=== PATIENT | female | born 1965 | race Caucasian/White ===

== ENCOUNTER → 2018-02-13 | Outpatient (CLI) | payer OTHER ==
[~2018-02-13] MED LIST: DPKSR250 PO; TRAM-10 PO
[2018-02-13 10:51] LABS: BASO % 0.2 %; BASO ABS # 0.01 K/uL (0-0.2); EOS % 1.6 %; EOS ABS # 0.07 K/uL (0-0.5); HEMATOCRIT 39.6 % (37-47); HEMOGLOBIN 13.3 g/dL (12.0-16.0); LYMPH % 44.9 %; LYMPH ABS # 1.92 K/uL (1.2-3.4); MEAN CORPUSCULAR HEMOGLOBIN 30.2 pg (25-34); MEAN CORPUSCULAR HGB CONC 33.6 g/dl (32-36); MEAN PLATELET VOLUME 10.5 fL (7.4-10.4); MONO % 8.9 %; MONO ABS # 0.38 K/uL (0.11-0.59); NEUT % 44.4 %; PLATELET COUNT 185 K/uL (130-400); RED CELL DISTRIBUTION WIDTH CV 13.6 % (11.5-14.5); RED CELL DISTRIBUTION WIDTH SD 44.8 fL (36.4-46.3); WHITE BLOOD COUNT 4.28 K/uL (4.8-10.8)
[2018-02-13 11:18] LABS: ALBUMIN 3.8 gm/dl (3.4-5.0); ALKALINE PHOSPHATASE 75 U/L (45-117); ALT/SGPT 25 U/L (12-78); AST/SGOT 16 U/L (15-37); TOTAL PROTEIN 7.8 gm/dl (6.4-8.2)
== END | disposition home or self-care (01) ==
LOC: C.LAB1850 09:55
PROVIDERS: ATTEND Psychiatry & Neurology Psychiatry
DX: Z51.81 Encounter for therapeutic drug level monitoring (principal); Z79.3 Long term (current) use of hormonal contraceptives; Z79.899 Other long term (current) drug therapy

== ENCOUNTER → 2018-06-09 | Outpatient (CLI) | payer OTHER ==
[~2018-06-09] MED LIST changes: +DPKSR/250 PO; -DPKSR250 PO; +EYED OP; -TRAM-10 PO
--- NOTE | 2018-06-10 08:11 | MAMMOGRAPHY REPORT ---
ULTRASOUND OF BOTH BREASTS: 06/09/2018 CLINICAL HISTORY: 53-year-old woman called back from baseline screening mammogram for bilateral breas t masses. Patient's mother was tested for the breast cancer gene which was reportedly negative. No fi rst-degree relatives with breast cancer. COMPARISON: Comparison is made to exam dated: 05/28/2018 mammogram - [facility]. FINDINGS: Targeted ultrasound was performed in the upper outer posterior right breast to assess for t he 14 mm circumscribed mammographic mass, and also in the approximate 12:00 anterior left breast to a ssess for a second lobulated and circumscribed subcentimeter mass. In the 11:00 right breast, 5 cm f rom the nipple, there is an oval parallel circumscribed hypoechoic solid-appearing mass measuring 0.8 x 0.6 x 1.1 cm. 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 In the 12:00 left breast, 1 cm from the nipple, there is a lobulated parallel hypoecho ic solid mass measuring 1.1 x 0.4 x 0.5 cm. This most likely represents another fibroadenoma. A thi rd mass is seen in the 12:30 left breast, 2 cm from the nipple that is oval, parallel, circumscribed and anechoic with evidence of posterior acoustic enhancement, measuring 0.9 x 0.5 x 0.8 cm, compatibl e with a benign simple cyst. IMPRESSION: ACR-BI-RADS CATEGORY 3: PROBABLY BENIGN 1. The bilateral breast masses most likely correspond with benign-appearing solid masses seen on ult rasound in the right breast at 11:00 and left breast at 12:00. We discussed options of serial follow -up imaging to ensure stability for a total of 2 years versus tissue sampling with core needle biopsy . The patient is considering her options but will likely undergo bilateral ultrasound-guided core bi opsies. 2. Incidentally noted benign simple cyst in the 12:30 left breast seen on ultrasound. These results and recommendations were discussed with the patient at the time of the exam. She will call in to schedule a follow-up appointment. Jammie Kim M.D. ay/:06/09/2018 15:17:40 Attending Technologist: MARY Lomeli)(M), [facility] Rn Icu: Jammie Kim, [facility] letter sent: Follow Up Recommended 3 BI-RADS Code: ACR-BI-RADS Category 3: Probably Benign
== END | disposition home or self-care (01) ==
LOC: C.MAMM 12:42
PROVIDERS: ATTEND Family Medicine
DX: N63.10 Unspecified lump in the right breast, unspecified quadrant (principal); N63.20 Unspecified lump in the left breast, unspecified quadrant; N60.02 Solitary cyst of left breast

== ENCOUNTER → 2018-07-13 | Outpatient (CLI) | payer OTHER ==
--- NOTE | 2018-07-13 13:40 | Discharge Instructions ---
Discharge Instructions Procedure Procedure Date: Jul 13, 2018. Reason for visit: Bilateral Masses. Discharge Discharge Date: Jul 13, 2018. Discharge Diagnosis: post right and left breast ultrasound guided core biopsies Instructions Activity Recommendations: Additional Limitations (see below) Return to School/Work: no limitations Recommended Home Diet: No Limitations Provider Instructions: ACTIVITY RECOMMENDATIONS: * No lifting, pushing, pulling or exercising the affected side for three days. RETURN TO SCHOOL/WORK: * You may return to work/school after the procedure, but do not perform any strenuous activities for 24 to 48 hours. MEDICATIONS: * Tylenol (two 325 mg) every four to six hours if needed for mild pain (if not allergic to Tylenol). DIET: * Resume previous diet. SPECIAL CARE INSTRUCTIONS: * Keep biopsy site dry for 24 hours. May shower after 24 hours, but do not soak (bathe) incision. May remove Tegaderm (plastic patch) 24 hours after procedure * Leave the steri-strips on for one week. Allow the steri-strips to fall off by themselves. If not off after one week, you may remove them. You may place a Bandaid crosswise over the strips, if desired. * Apply ice 10 minutes on and 10 minutes off as needed. * Wear a bra at bedtime to sleep more comfortably for 2-3 days. * Your referring physician should have the results after approximately 5 to 7 business days. * Call for unusual bleeding, fever, drainage, etc or if you have any questions call [phone] during normal business hours or after hours call Dr Kim, . FOLLOW UP VISIT: Follow-up with Referring Physician as scheduled. Allergies Coded Allergies: Sulfa Drugs (Verified Allergy, Unknown, 04/25/18) Sulfamethoxazole (Verified Allergy, Unknown, 04/25/18) Araceli Love Recommendations: Call your doctor if: * Temperature above 101 degrees * Pain not relieved by pain medicine ordered * There is increased drainage or redness from any incision * You have any unanswered questions or concerns. Your Doctors Instructions noted above were prepared by provider Jammie Kim. Patient Signature Section: Patient Instructions Signature Page Patti Valenzuela Patient (or Guardian) Signature/Date: I have read and understand the instructions given to me by my caregivers. Caregiver/RN/Doctor Signature/Date: The above-named patient and/or guardian has received patient instructions on this date. + Original Patient Signature Page (only) stays with chart. Please make copy for patient.
--- NOTE | 2018-07-13 15:14 | MAMMOGRAPHY REPORT ---
ULTRASOUND GUIDED BIOPSY LEFT BREAST: 07/13/2018 CLINICAL HISTORY: 11 mm solid mass is noted in the right 11:00 and left 12:00 breast, thought to zoe espond with mammographic masses. Patient presents for ultrasound-guided core needle biopsy [facility] IMPRESSION: ULTRASOUND GUIDED BIOPSY Please refer to the report from right breast ultrasound-guided core biopsy performed at the same time for full detail. Jammie Kim M.D. ay/:07/13/2018 13:41:58 Shirt Marker: Adrienne Yan, [facility]
--- NOTE | 2018-07-13 15:14 | MAMMOGRAPHY REPORT ---
BILATERAL DIGITAL DIAGNOSTIC MAMMOGRAM TOMOSYNTHESIS: 07/13/2018 CLINICAL HISTORY: 11 mm solid masses noted in the right 11:00 and left 12:00 breast, thought to corre spond with mammographic masses. Patient presents for ultrasound-guided core needle biopsy in each [facility]. IMPRESSION: POST PROCEDURE IMAGING FOR MARKER PLACEMENT Please refer to the report from right breast ultrasound guided core biopsy performed at the same time for full detail. Some breast cancers are not detected with mammography. A negative mammographic report should not demetrius y biopsy if a clinically suggestive mass is present. Jammie Kim M.D. ay/:07/13/2018 13:42:47 Senior Java Engineer: Adrienne Yan, [facility] BI-RADS Code: Post Procedure Imaging For Marker Placement
--- NOTE | 2018-07-13 15:14 | MAMMOGRAPHY REPORT ---
ULTRASOUND GUIDED BIOPSY RIGHT BREAST: 07/13/2018 CLINICAL HISTORY: 11 mm solid masses noted in the right 11:00 and left 12:00 breast, thought to corre spond with mammographic masses. Patient presents for ultrasound-guided core needle biopsy in each anastacio ast. COMPARISON: Comparison is made to exams dated: 06/09/2018 ultrasound and 05/28/2018 mammogram - [facility]. PATIENT CONSENT: The procedure, risks and benefits were discussed with the patient and informed conse nt was obtained both verbally and in writing. Specific risks to this procedure include: bleeding, in fection, puncture of adjacent structure, nontarget biopsy, sampling error, pain, metal allergy and me dication reaction. PROCEDURE DESCRIPTION: A time out was performed and both right and left breasts were agreed as the si tiera of biopsy. First the right breast biopsy was performed. The oval circumscribed hypoechoic solid mass in the 11: 00 left breast, 5 cm from the nipple was identified. Incidentally noted while evaluating the right b reast prior to biopsy is a second macrolobulated parallel isoechoic solid mass measuring 11.3 x 5.9 x 13.5 mm, and the 11:00 right breast, 3 cm from the nipple. This likely represents an additional fib roadenoma and pending benign pathology results a short interval follow-up targeted right breast ultra sound is recommended to ensure stability of the second non-biopsied mass. The skin of the right breast was prepped and draped in the usual sterile fashion. The solid 11 mm mas s in the 11:00 right breast, 5 cm from the nipple, was chosen as the target for biopsy. Subcutaneous and intraparenchymal 1% buffered lidocaine, with and without epinephrine, was administered as local a nesthesia. A skin incision was made. Through the incision, 3 samples were taken with a 14 gauge Achi iván biopsy device. A ribbon shaped metallic marker was placed at the biopsy site. Hemostasis was achi eved after manual compression. The patient tolerated the procedure well and there was no immediate co mplication. The samples were sent to the pathology department in an appropriately labeled container. Then the biopsy was performed in the left breast for the lobulated 11 mm mass in the 12:00 axis. The skin of the left breast was prepped and draped in the usual sterile fashion. Additional subcutaneou s and intraparenchymal 1% buffered lidocaine, with and without epinephrine was administered as local anesthesia. A skin incision was made. Through the incision, 4 samples were taken with a 14 gauge Ach ieve biopsy device. A ribbon shaped metallic marker was placed at the biopsy site. Hemostasis was ach ieved after manual compression. The patient tolerated the procedure well and there was no immediate c omplication. The samples were sent to the pathology department in an appropriately labeled container . Postprocedure CC and MLO tomosynthesis views of each breast were obtained. There are new ribbon-shap ed biopsy marker clips in the right 11:00 posterior and left 12:00 anterior breast, without evidence of significant postbiopsy hematoma. IMPRESSION: ULTRASOUND GUIDED BIOPSY 1. Status post ultrasound-guided core needle biopsy of solid masses in the 11:00 right breast and 12 :00 left breast, with ribbon-shaped biopsy marker clips placed at each site. 2. The biopsy marker clips aligned with the dominant mammographic masses in question, seen on screen ing mammography. 3. Pending benign pathology results, a follow-up targeted right breast ultrasound is recommended in the right 11:00 axis, 3 cm from the nipple, for an incidentally identified second lobulated solid mas s seen immediately prior to the biopsy which was performed in the 11:00 right breast, 5 cm from the n ipple. This likely represents an additional fibroadenoma. The patient will receive notification of the biopsy results from her referring physician. Jammie Kim M.D. ay/:07/13/2018 13:58:42 Field Sales Executive: Adrienne Yan, [facility]
== END | disposition home or self-care (01) ==
LOC: C.MAMM 12:45
PROVIDERS: ATTEND Family Medicine
DX: N63.10 Unspecified lump in the right breast, unspecified quadrant (principal); N63.20 Unspecified lump in the left breast, unspecified quadrant; D24.1 Benign neoplasm of right breast; D24.2 Benign neoplasm of left breast